=== PATIENT | male | born 1960 | race Two or more races ===

== ENCOUNTER 2021-10-27 12:01 | Emergency (ER) | payer OTHER, BC ==
[~2021-10-27] VITALS: Ht 172.7 cm; Wt 89.5 kg
[2021-10-27] MEDS ORDERED: fentaNYL PF VIAL 100 MCG/2 ML VIAL IVP ONE (12:15)
[2021-10-27] MEDS ORDERED: CONTRAST GIVEN. MC PRN (12:30)
[2021-10-27] MEDS ORDERED: IOHEXOL 300 MG/ML 100ML VIAL. IV ONE (12:30)
[2021-10-27 12:36] LABS: BASO # 0.1 x10^3/uL (0.0-0.2); BASO % 1 % (0-3); EOS # 0.2 x10^3/uL (0.0-0.7); EOS % 5 % (0-3); HEMATOCRIT 44.3 % (39.0-53.0); HEMOGLOBIN 15.1 g/dL (13.0-17.5); LYMPH # 1.3 x10^3/uL (1.0-4.8); LYMPH % 27 % (24-48); MEAN CORPUSCULAR HEMOGLOBIN 31 pg (25-35); MEAN CORPUSCULAR HGB CONC 34 g/dL (31-37); MEAN CORPUSCULAR VOLUME 90 fL (79-100); MONO # 0.6 x10^3/uL (0.0-1.1); MONO % 14 % (0-9); NEUT # 2.5 x10^3/uL (1.8-7.7); NEUT % 53 % (31-73); PLATELET COUNT 283 x10^3/uL (140-400); RED BLOOD COUNT 4.94 x10^6/uL (4.30-5.70); WHITE BLOOD COUNT 4.7 x10^3/uL (4.0-11.0)
[2021-10-27 12:40] LABS: CALCIUM 8.3 mg/dL (8.5-10.1); CREATININE 0.9 mg/dL (0.7-1.3); GFR 85.8
[2021-10-27 12:46] LABS: ALBUMIN 3.4 g/dL (3.4-5.0); ALBUMIN/GLOBULIN RATIO 1.1 (1.0-1.7); TOTAL BILIRUBIN 0.5 mg/dL (0.2-1.0); TOTAL PROTEIN 6.6 g/dL (6.4-8.2)
--- NOTE | 2021-10-27 13:21 | RAD ---
3 views right elbow and 2 views right forearm dated 10/27/2021. COMPARISON: None. INDICATION: Pain. FINDINGS: 3 views the right elbow show normal bony alignment. No displaced fracture. No periostitis or bone marilin truction. No apparent fat pad elevation to suggest joint effusion. There is a prominent olecranon spu r. 2 views of the right forearm show normal bony alignment. No displaced fracture. There is been volar p late and screw fixation of the distal radius. No acute osseous or articular abnormality. IMPRESSION: No acute findings. Electronically signed by: Aiden Shepard MD (10/27/2021 1:19 PM) [id number]
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
[2021-10-27] MEDS ORDERED: HYDR-2761 PO (14:33)
[2021-10-27 14:39] VITALS: BP 113/70
[2021-10-27] MEDS ORDERED: HYDROcodone/APAP 5/325MG 1 TAB TABLET PO ONE (14:45)
[2021-10-27] MEDS ORDERED: HYDROcodone/APAP 5/325MG 1 TAB TABLET ONE (14:47)
[2021-10-27 15:07] LABS: BILIRUBIN,URINE NEGATIVE (NEG); CLARITY,URINE CLEAR; COLOR,URINE YELLOW; NITRITE,URINE NEGATIVE (NEG); PH,URINE 5.5 (<5.0-8.0); PROTEIN,URINE NEGATIVE (NEG-TRACE)
[2021-10-27 15:12] LABS: BACTERIA,URINE 0 /HPF (0-FEW); RBC,URINE 0 /HPF (0-2); WBC,URINE 0 /HPF (0-4)
== END 2021-10-27 15:01 | disposition home or self-care (01) ==
LOC: ER 12:01
DX: N28.1 Cyst of kidney, acquired (principal); M54.6 Pain in thoracic spine; M54.2 Cervicalgia; M25.521 Pain in right elbow; Z90.89 Acquired absence of other organs; V49.59XA Passenger injured in collision with other motor vehicles in traffic accident, initial encounter; Y93.89 Activity, other specified; Y92.488 Other paved roadways as the place of occurrence of the external cause; Y99.8 Other external cause status
CPT/HCPCS: 36415; 70450; 71260; 72125; 73080; 73090; 74177; 80053; 81001; 85025; 96374; 99285; J3010; Q9967